=== PATIENT | female | born 1990 | race African-American/Black ===

== ENCOUNTER 2017-12-20 19:24 | Emergency (ER) | END 2017-12-20 21:39 | disposition left against medical advice (07) | LOC: ER 19:24 | DX: Z53.21 Procedure and treatment not carried out due to patient leaving prior to being seen by health care provider (principal); R11.2 Nausea with vomiting, unspecified ==

== ENCOUNTER 2018-05-13 15:10 | Outpatient (CLI) | payer MEDICAID ==
[2018-05-13 16:14] LABS: BACTERIA (WET MOUNT) 4+ BACTERIA SEEN; EPITHELIALS (WET MOUNT) 3+ EPITHELIALS SEEN; RBCS (WET MOUNT) 1+ RBCS SEEN; T.VAGINALIS (WET MOUNT) NO TRICHOMONAS SEEN; WBCS (WET MOUNT) 4+ WBCS SEEN; YEAST (WET MOUNT) NO YEAST SEEN
[2018-05-13 16:17] LABS: APPEARANCE,URINE CLEAR; BILIRUBIN,URINE NEGATIVE (NEGATIVE); COLOR,URINE YELLOW; GLUCOSE, URINE NEGATIVE (NEGATIVE); KETONES,URINE NEGATIVE (NEGATIVE); LEUKOCYTE ESTERASE,URINE MODERATE (NEGATIVE); NITRITE,URINE NEGATIVE (NEGATIVE); PROTEIN,URINE 30 mg/dL (NEGATIVE); URINE SPECIFIC GRAVITY 1.026
[2018-05-13 16:37] LABS: URINE BARBITURATES SCREEN NEGATIVE; URINE BENZODIAZEPINES SCREEN NEGATIVE; URINE COCAINE SCREEN NEGATIVE; URINE MARIJUANA (THC) SCREEN NEGATIVE; URINE METHADONE SCREEN NEGATIVE; URINE PHENCYCLIDINE SCREEN NEGATIVE
[2018-05-13 16:41] LABS: URINE AMPHETAMINES SCREEN NEGATIVE
[2018-05-13] MEDS ORDERED: ALBUTEROL SULFATE HFA (90 MCG/PUFF) 200 PUFF/8.5 GM MDI IH ONE (17:00)
[2018-05-13 17:44] LABS: CHLAM PCR NOT DETECTED (NOT DETECT); GON PCR NOT DETECTED (NOT DETECT)
--- NOTE | 2018-05-13 18:32 | RADIOLOGY REPORT (SQ) ---
EXAM DESCRIPTION: U/S OB LIMITED COMPLETED DATE/TIME: 05/13/2018 5:02 pm REASON FOR STUDY: cervical length COMPARISON: None. TECHNIQUE: Limited transvaginal and transabdominal grayscale ultrasound for evaluation of specific r equested obstetrical parameters. LIMITATIONS: None. FINDINGS: CERVICAL LENGTH: 4.3 cm Closed. LISA: 10.9 cm. FHR: 140 beats per minute. PRESENTATION: Cephalic. PLACENTA: Anterior ANATOMY: Not assessed OTHER: Composite ultrasound age 28 weeks 3 days. IMPRESSION: LIMITED OBSTETRICAL ULTRASOUND WITH MEASURED PARAMETERS DELINEATED ABOVE. Trimester of : Third trimester - 28 weeks to delivery. TECHNICAL DOCUMENTATION: JOB ID: [id number] [employer]- All Rights Reserved Reading location - IP/workstation name: [email or web address]
== END 2018-05-13 17:54 | disposition home or self-care (01) ==
LOC: LC 15:10
PROVIDERS: ATTEND Obstetrics & Gynecology
PROC: 4A1HXCZ Monitoring of Products of Conception, Cardiac Rate, External Approach (ICD-10-PCS; principal; 2018-05-13)
DX: O47.02 False labor before 37 completed weeks of gestation, second trimester (principal); Z3A.27 27 weeks gestation of pregnancy
CPT/HCPCS: 87210; 81005; 80307; 87491; 87591; 76815; 59899; J3490

== ENCOUNTER 2018-06-03 14:03 | Outpatient (CLI) | payer MEDICAID ==
[2018-06-03 15:06] LABS: APPEARANCE,URINE SLIGHTLY-CLOUDY; BILIRUBIN,URINE NEGATIVE (NEGATIVE); COLOR,URINE AMBER; GLUCOSE, URINE NEGATIVE (NEGATIVE); KETONES,URINE NEGATIVE (NEGATIVE); LEUKOCYTE ESTERASE,URINE LARGE (NEGATIVE); NITRITE,URINE NEGATIVE (NEGATIVE); PROTEIN,URINE 30 mg/dL (NEGATIVE); URINE SPECIFIC GRAVITY 1.025
[2018-06-03 15:17] LABS: URINE AMPHETAMINES SCREEN NEGATIVE; URINE BARBITURATES SCREEN NEGATIVE; URINE BENZODIAZEPINES SCREEN NEGATIVE; URINE COCAINE SCREEN NEGATIVE; URINE MARIJUANA (THC) SCREEN NEGATIVE; URINE METHADONE SCREEN NEGATIVE; URINE PHENCYCLIDINE SCREEN NEGATIVE
== END 2018-06-03 15:23 | disposition home or self-care (01) ==
LOC: LC 14:03
PROVIDERS: ATTEND Obstetrics & Gynecology
PROC: 4A1HXCZ Monitoring of Products of Conception, Cardiac Rate, External Approach (ICD-10-PCS; principal; 2018-06-03)
DX: O23.593 Infection of other part of genital tract in pregnancy, third trimester (principal); B37.49 Other urogenital candidiasis; Z3A.30 30 weeks gestation of pregnancy
CPT/HCPCS: 80307; 81001; 84112

== ENCOUNTER 2018-06-14 13:45 | Emergency (ER) | payer MEDICAID | END 2018-06-14 14:46 | disposition left against medical advice (07) | LOC: ER 13:45 | DX: Z53.21 Procedure and treatment not carried out due to patient leaving prior to being seen by health care provider (principal); R06.02 Shortness of breath ==

== ENCOUNTER 2018-06-26 12:19 | Outpatient (CLI) | payer MEDICAID ==
[2018-06-26 13:07] LABS: APPEARANCE,URINE SLIGHTLY-CLOUDY; BILIRUBIN,URINE NEGATIVE (NEGATIVE); GLUCOSE, URINE NEGATIVE (NEGATIVE); KETONES,URINE 20 mg/dL (NEGATIVE); LEUKOCYTE ESTERASE,URINE LARGE (NEGATIVE); NITRITE,URINE NEGATIVE (NEGATIVE); PROTEIN,URINE 30 mg/dL (NEGATIVE); URINE SPECIFIC GRAVITY 1.021; UROBILINOGEN,URINE NEGATIVE mg/dL (<2.0)
[2018-06-26 13:08] LABS: COLOR,URINE DARK YELLOW
[2018-06-26 13:28] LABS: URINE AMPHETAMINES SCREEN NEGATIVE; URINE BARBITURATES SCREEN NEGATIVE; URINE BENZODIAZEPINES SCREEN NEGATIVE; URINE COCAINE SCREEN NEGATIVE; URINE MARIJUANA (THC) SCREEN NEGATIVE; URINE METHADONE SCREEN NEGATIVE; URINE PHENCYCLIDINE SCREEN NEGATIVE
--- NOTE | 2018-06-26 14:39 | Non Stress Test Report ---
Non Stress Test Datetime Report Generated by CPN: 06/26/2018 14:38 DEMOGRAPHIC EGA NST: 34.0 INDICATION Indication for Study: Ordered by Provider Indication for Study (NST) Other: repeat from the office MONITORING Monitor Explained: Monitor Explained; Test Explained; Patient Verbalized Understanding Time on Monitor: 06/26/2018 12:40 Time off Monitor: 06/26/2018 13:27 NST Duration: 47 NST INTERVENTIONS NST Interventions: PO Hydration; Reposition Patient Physician Notified NST: A You CNM BABY A: [id number] BABY A Movement : Present Contraction Frequency : 0 FHR Baseline : 140 Accelerations : 15X15 Decelerations : None Variability : Moderate 6-25bpm NST Review: Meets Criteria for Reactive NST NST Review and Verified By : KRISTEN TREJO RN NSMendy Results: Reactive NST REPORT Report Trigger: Send Report
== END 2018-06-26 13:45 | disposition home or self-care (01) ==
LOC: LC 12:19
PROVIDERS: ATTEND Obstetrics & Gynecology
PROC: 4A1HXCZ Monitoring of Products of Conception, Cardiac Rate, External Approach (ICD-10-PCS; principal; 2018-06-26)
DX: Z34.93 Encounter for supervision of normal pregnancy, unspecified, third trimester (principal)
CPT/HCPCS: 59025; 80307; 81001; 84112; 87086

== ENCOUNTER 2018-07-13 14:31 | Outpatient (CLI) | payer MEDICAID | END 2018-07-13 15:39 | disposition home or self-care (01) | LOC: LC 14:31 | PROVIDERS: ATTEND Obstetrics & Gynecology | PROC: 4A1HXCZ Monitoring of Products of Conception, Cardiac Rate, External Approach (ICD-10-PCS; principal; 2018-07-13) | DX: O36.5930 Maternal care for other known or suspected poor fetal growth, third trimester, not applicable or unspecified (principal); Z3A.36 36 weeks gestation of pregnancy | CPT/HCPCS: 59025 ==

== ENCOUNTER 2018-07-31 18:04 | Inpatient (IN) | payer MEDICAID ==
--- NOTE | 2018-07-31 18:13 | Non Stress Test Report ---
Non Stress Test Datetime Report Generated by CPN: 07/31/2018 18:13 DEMOGRAPHIC EGA NST: 36.3 INDICATION Indication for Study: Other Indication for Study (NST) Other: repeat from the office growth lag MONITORING Monitor Explained: Monitor Explained; Test Explained; Patient Verbalized Understanding Time on Monitor: 07/13/2018 14:44 Time off Monitor: 07/13/2018 15:31 NST Duration: 47 NST INTERVENTIONS NST Interventions: PO Hydration; Reposition Patient Physician Notified NST: Dr Younger BABY A: [id number] BABY A Movement : Present Contraction Frequency : 0 FHR Baseline : 140 Accelerations : 15X15 Decelerations : None Variability : Moderate 6-25bpm NST Review: Meets Criteria for Reactive NST NST Review and Verified By : Bonifacio Bellavance RN NST Results: Reactive NST REPORT Report Trigger: Send Report
[2018-07-31] MEDS ORDERED: DINOPROSTONE 10 MG VAGINAL INSERT.SR PV PRN (18:20)
[2018-07-31] MEDS ORDERED: RINGERS SOLUTION,LACTATED 300 ML IV ONE (18:20)
[2018-07-31 19:08] LABS: APPEARANCE,URINE SLIGHTLY-CLOUDY; BILIRUBIN,URINE NEGATIVE (NEGATIVE); GLUCOSE, URINE NEGATIVE (NEGATIVE); KETONES,URINE NEGATIVE (NEGATIVE); LEUKOCYTE ESTERASE,URINE SMALL (NEGATIVE); NITRITE,URINE NEGATIVE (NEGATIVE); PROTEIN,URINE 30 mg/dL (NEGATIVE); URINE SPECIFIC GRAVITY 1.021
[2018-07-31 19:12] LABS: COLOR,URINE YELLOW
[2018-07-31 19:26] LABS: URINE AMPHETAMINES SCREEN NEGATIVE; URINE BARBITURATES SCREEN NEGATIVE; URINE BENZODIAZEPINES SCREEN NEGATIVE; URINE COCAINE SCREEN NEGATIVE; URINE MARIJUANA (THC) SCREEN NEGATIVE; URINE METHADONE SCREEN NEGATIVE; URINE PHENCYCLIDINE SCREEN NEGATIVE
[2018-07-31 19:51] LABS: ABSOLUTE BASOPHILS # (AUTO) 0.1 10^3/uL (0.0-0.2); ABSOLUTE LYMPHOCYTES (AUTO) 1.5 10^3/uL (0.5-4.7); BASOPHILS % (AUTO) 0.4 % (0-2); EOSINOPHILS % (AUTO) 0.3 % (0-6); HEMATOCRIT 33.3 % (36.0-47.0); LYMPHOCYTES % (AUTO) 10.1 % (13-45); MEAN CORPUSCULAR HEMOGLOBIN 29.5 pg (27.0-33.4); MEAN CORPUSCULAR VOLUME 90 fl (80-97); MONOCYTES % (AUTO) 6.7 % (3-13); PLATELET COUNT 284 10^3/uL (150-450); RED BLOOD COUNT 3.72 10^6/uL (3.72-5.28); RED CELL DISTRIBUTION WIDTH 13.5 % (11.5-14.0); SEGMENTED NEUTROPHILS % (AUTO) 82.5 % (42-78); TOTAL CELLS COUNTED % (AUTO) 100 %; WHITE BLOOD COUNT 14.5 10^3/uL (4.0-10.5)
--- NOTE | 2018-07-31 20:35 | Admission Physical ---
Datetime Report Generated by CPN: 07/31/2018 20:35 CURRENT ADMISSION Chief Complaint: Other Indication for Induction: Indicated by Testing; Other Indication for Induction- Other: small abdominal circumference Admit Impression : Term, Intrauterine ; No Active Labor Admit Plan: Admit to Unit; Initiate Labor Induction Protocol ALLERGIES Medication Allergies: Yes Medication Allergies: Penicillins (06/14/2018) Latex: No Latex Allergies Food Allergies: n/a Environmental Allergies: pollen OBSTETRICAL HISTORY EDC: 08/07/2018 00:00 : 1 Para: 0 (Annotations: Data stored by N on behalf of user) Term: 0 : 0 SAB: 0 IAB: 0 Ectopic: 0 Livin Cesareans: 0 VBACs: 0 Multiple Births: 0 Gestational Diabetes: No Rh Sensitization: No Incompetent Cervix: No PRINCE: No Infertility: No ART Treatment: No Uterine Anomaly: No IUGR: Yes Hx Previous C/S: No Macrosomia: No Hx Loss/Stillborn: No PIH: No Hx : No Placenta Previa/Abruption: No Depression/PP Depression: No PTL/PROM: No Post Hemorrhage: No Current Procedures: Ultrasound; NST Obstetrical History Comments: G1- current SEE RECORDS Alcohol: No Marijuana : No Cocaine: No Other Illicit Drugs: No Cigarettes: Never Smoker. 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 Heart Disease: No Hosp/Surgery: No Autoimmune Disorder: No Anesthetic Complications: No Kidney Disease: No Abnormal Pap Smear: No Neuro/Epilepsy: No Psychiatric Disorders: No Other Medical Diseases: No Hepatitis/Liver Disease: No Significant Family History: Yes Varicosities/Phlebitis: No Trauma/Violence : No Thyroid Dysfunction: No Medical History Comments: recurrent BV before INFECTIOUS HISTORY Gonorrhea: No Genital Herpes: No Chlamydia: No Tuberculosis: No Syphilis: No Hepatitis: No HIV/AIDS Exposure: No Rash or Viral Illness: No HPV: No PHYSICAL EXAM General: Normal HEENT: Normal Neurologic: Normal Thyroid: Normal Heart: Normal Lungs: Normal Breast: Normal Back: Normal Abdomen: Normal Genitourinary Exam: Normal Extremities: Normal DTRs: Normal Pelvic Type: Adequate Vital Signs: Reviewed; Within Normal Limits VAGINAL EXAM Dilatation: 1 Effacement: 80 Station: -1 Contraction Comments: irregular MEMBRANES Membranes: Intact FETUS A EGA: 39.0 Monitoring: External US FHR- Baseline: 150s Variability: Moderate 6-25bpm Accelerations: 10X10 Decelerations: None FHR Category: Category I Admit Comment: This will be a cervidil induction, which has not been placed yet. She GBS Positive. PLANS FOR LABOR AND DELIVERY Labor and Delivery: None Pain Management: Medications; Epidural Feeding Preference: Breast Benefit of Breast Feed Discussed: Yes Circumcision: Yes INFORMED CONSENT Signature: with User ID: [email or web address]
[2018-07-31] MEDS: RINGERS SOLUTION,LACTATED 1,000 ML IV PRN (21:30)
[2018-07-31] MEDS ORDERED: DINOPROSTONE 10 MG VAGINAL INSERT.SR ONE (22:24)
[2018-08-01] MEDS ORDERED: MISOPROSTOL 0.2 MG TABLET ONE (00:30)
[2018-08-01] MEDS ORDERED: LIDOCAINE 1% INJ-PF (10 MG/ML) 30 ML SDV ONE (00:31)
[2018-08-01] MEDS ORDERED: ZOLPIDEM TARTRATE 5 MG TABLET ONE ×2 (00:31→00:32)
[2018-08-01] MEDS ORDERED: OXYTOCIN/NORMAL SALINE 20 UNIT/1,000 ML RTUINJ ONE (00:31)
[2018-08-01] MEDS ORDERED: CLINDAMYCIN 900 MG/D5W RTU 900 MG/50 ML RTUPB IV ONE (00:54)
[2018-08-01] MEDS: CLINDAMYCIN 900 MG/D5W RTU 900 MG/50 ML RTUPB IV SCH ×2 (01:01→23:46)
[2018-08-01] MEDS ORDERED: FENTANYL/BUPIVACAINE/NS/PF 300 MCG/150 ML RTUINJ EPI ONE (01:39)
[2018-08-01] MEDS ORDERED: EPHEDRINE SULFATE INJ 50 MG/1 ML AMPULE ONE (01:39)
[2018-08-01] MEDS ORDERED: BUPIVACAINE HCL 0.25 % INJ/PF (2.5 MG/1 ML) 30 ML VIAL ONE (01:39)
[2018-08-01] MEDS ORDERED: LIDOCAINE 1.5%/EPINEPHRINE INJ 5 ML AMP ONE (01:40)
[2018-08-01] MEDS: RINGERS SOLUTION,LACTATED 1,000 ML IV PRN (02:17)
[2018-08-01] MEDS ORDERED: FENTANYL CITRATE INJ/PF 100 MCG/2 ML AMPUL ONE (02:54)
[2018-08-01] MEDS ORDERED: OXYTOCIN/NORMAL SALINE 20 UNIT/1,000 ML RTUINJ IV PRN (05:51)
[2018-08-01] MEDS ORDERED: DIBUCAINE 1% OINTMENT 56 GM TP PRN (05:51)
[2018-08-01] MEDS ORDERED: ZOLPIDEM TARTRATE 5 MG TABLET PO PRN (05:51)
[2018-08-01] MEDS ORDERED: ACETAMINOPHEN WITH CODEINE #3 TABLET PO PRN ×2 (05:51)
[2018-08-01] MEDS ORDERED: BENZOCAINE/MENTHOL AEROSOL SPRAY 56 ML TOP PRN (05:51)
[2018-08-01] MEDS ORDERED: DIPH/PERTUSS(ACELL)/TETANUS VAC/PF 0.5 ML SYR (>=10YO) IM PRN (05:51)
[2018-08-01] MEDS ORDERED: IBUPROFEN 800 MG TABLET ONE (07:33)
[2018-08-01] MEDS: IBUPROFEN 800 MG TABLET PO SCH ×3 (07:36→22:19)
[2018-08-01] MEDS ORDERED: ACETAMINOPHEN WITH CODEINE #3 TABLET ONE (08:42)
[2018-08-01] MEDS: DOCUSATE SODIUM 100 MG CAPSULE PO SCH ×2 (10:10→17:20)
[2018-08-01] MEDS: PRENATAL VITAMIN W DHA CAPSULE PO SCH (10:10)
[2018-08-01] MEDS: FERROUS SULFATE 325 MG TABLET PO SCH ×2 (10:10→17:20)
[2018-08-01] MEDS: SENNOSIDES/DOCUSATE 8.6-50 MG 1 EACH TABLET PO SCH (10:10)
[2018-08-02] MEDS: IBUPROFEN 800 MG TABLET PO SCH ×3 (05:05→22:26)
[2018-08-02 06:31] LABS: HEMATOCRIT 30.5 % (36.0-47.0); HEMOGLOBIN 10.3 g/dL (12.0-15.5); MEAN CORPUSCULAR HEMOGLOBIN 29.8 pg (27.0-33.4); MEAN CORPUSCULAR HGB CONC 33.6 g/dL (32.0-36.0); MEAN CORPUSCULAR VOLUME 89 fl (80-97); PLATELET COUNT 245 10^3/uL (150-450); RED BLOOD COUNT 3.44 10^6/uL (3.72-5.28); RED CELL DISTRIBUTION WIDTH 13.6 % (11.5-14.0); WHITE BLOOD COUNT 17.8 10^3/uL (4.0-10.5)
[2018-08-02] MEDS: PRENATAL VITAMIN W DHA CAPSULE PO SCH (09:29)
[2018-08-02] MEDS: FERROUS SULFATE 325 MG TABLET PO SCH ×2 (09:29→17:15)
[2018-08-02] MEDS: SENNOSIDES/DOCUSATE 8.6-50 MG 1 EACH TABLET PO SCH (09:31)
[2018-08-02] MEDS: DOCUSATE SODIUM 100 MG CAPSULE PO SCH ×2 (09:31→17:15)
--- NOTE | 2018-08-02 09:53 | PDOC PROGRESS REPORT ---
Subjective-OB Progress Note for:: 08/02/18 - PPD #1, doing well, , O+, Rubella + Physical Exam (OB) Vital Signs: Temp Pulse Resp BP Pulse Ox 98.0 F 97 15 118/83 97 08/02/18 08:26 08/02/18 08:26 08/02/18 08:26 08/02/18 08:26 08/02/18 08:26 Intake & Output 08/01/18 08/02/18 08/03/18 06:59 06:59 06:59 Intake Total 598 Balance 598 Weight 73.482 kg - General General Appearance: Appears well, Alert In distress: None - PIH/Pre-Eclampsia DTR's: 1 + Clonus: Negative Headache: Absent Epigastric Pain: No Visual Changes: No - Lochia Lochia Amount: Scant < 10 ml Lochia Color: Rubra/Red - Abdomen Description: Soft, Round Hernia Present: No Fundal Description: Firm, Midline Fundal Height: u/u - u/2 - Respiratory Respiratory Status: No respiratory distress - Abdominal Inspection: Normal Distension: No distension - Genitourinary Genitourinary Note: voiding - Extremities Upper extremity: Normal inspection Lower extremities: Normal inspection - Neurological Cognition: Normal Orientation: AAOx4 - Psychological Associated symptoms: Normal affect, Normal mood - Skin Skin Temperature: Warm Skin Moisture: Dry Objective-Diagnostic Laboratory: 08/02/18 06:11 08/02/18 06:11 WBC 17.8 H RBC 3.44 L Hgb 10.3 L Hct 30.5 L MCV 89 MCH 29.8 MCHC 33.6 RDW 13.6 Plt Count 245 Assessment and Plan(PN) - Assessment and Plan (1) Normal vaginal delivery Is this a current diagnosis for this admission?: Yes - Time Spent with Patient Time with patient: Less than 15 minutes Medications reviewed and adjusted accordingly: Yes - Disposition Anticipated Discharge: Home Within: within 24 hours
[2018-08-03] MEDS: IBUPROFEN 800 MG TABLET PO SCH (06:14)
[2018-08-03 08:49] VITALS: BP 117/84
--- NOTE | 2018-08-03 09:42 | PDOC PROGRESS REPORT ---
Subjective-OB Progress Note for:: 08/03/18 Subjective: Ready for discharge. Physical Exam (OB) Vital Signs: Temp Pulse Resp BP Pulse Ox 97.9 F 76 17 117/84 96 08/03/18 08:52 08/03/18 08:52 08/03/18 08:52 08/03/18 07:39 08/03/18 08:52 Intake & Output 08/02/18 08/03/18 08/04/18 06:59 06:59 06:59 Intake Total 790 Balance 790 - PIH/Pre-Eclampsia DTR's: 1 + Clonus: Negative Headache: Absent Epigastric Pain: No Visual Changes: No - Lochia Lochia Amount: Scant < 10 ml Lochia Color: Rubra/Red - Abdomen Description: Soft, Round Hernia Present: No Bowel Sounds: Normoactive Flatus Presence: Present Stool: Yes Fundal Description: Firm Fundal Height: u/u - u/2 Objective-Diagnostic Laboratory: 08/02/18 06:11 Assessment and Plan(PN) - Time Spent with Patient Medications reviewed and adjusted accordingly: Yes - Disposition Anticipated Discharge: Home
--- NOTE | 2018-08-03 09:50 | PDOC DISCHARGE SUMMARY ---
Final Diagnosis Discharge Date: 08/03/18 - Final Diagnosis (1) History of asthma Is this a current diagnosis for this admission?: Yes (2) Normal vaginal delivery Is this a current diagnosis for this admission?: Yes (3) Positive GBS test Is this a current diagnosis for this admission?: Yes (4) Is this a current diagnosis for this admission?: Yes Discharge Data - Discharge Medication Prescriptions: Ferrous Sulfate [Feosol 325 mg Tablet] 325 mg PO BID #60 tablet Home Medications: Pnv No.95/Ferrous Fum/Folic AC [ Vitamins Tablet] 1 each PO DAILY 05/13/18 Ferrous Sulfate [Feosol 325 mg Tablet] 325 mg PO BID #60 tablet 08/03/18 Gestational Age: 39.1 wks Reason(s) for Admission: Induction of Labor, Status Procedures: Ultrasound Intrapartum Procedure(s): Spontaneous Vaginal Delivery Complication(s): Laceration-Vaginal Laceration-Degree: 1st - Data Baby 1 Male at 1 minute: 8 at 5 minutes: 9 Weight: 3.402 kg Home with Mother: No Complications: Yes - Observation - Diagnosis Test Laboratory: Temp Pulse Resp BP Pulse Ox 97.9 F 76 17 117/84 96 08/03/18 08:52 08/03/18 08:52 08/03/18 08:52 08/03/18 07:39 08/03/18 08:52 07/31/18 07/31/18 08/02/18 18:33 19:15 06:11 RBC 3.72 3.44 L Hgb 11.0 L 10.3 L Hct 33.3 L 30.5 L Urine Opiates Screen NEGATIVE - Discharge information/Instructions Discharge Activity: Activity As Tolerated, Balance Activity w/Rest, Pelvic Rest, Slowly Increase Activity, No tub bath Discharge Diet: Regular Disposition: HOME, SELF-CARE Follow up with: [facility] in: 4, Weeks
[2018-08-03] MEDS: SENNOSIDES/DOCUSATE 8.6-50 MG 1 EACH TABLET PO SCH (10:29)
[2018-08-03] MEDS: PRENATAL VITAMIN W DHA CAPSULE PO SCH (10:29)
[2018-08-03] MEDS: FERROUS SULFATE 325 MG TABLET PO SCH (10:30)
[2018-08-03] MEDS: DOCUSATE SODIUM 100 MG CAPSULE PO SCH (10:30)
--- NOTE | 2018-08-17 09:53 | Delivery Summary ---
Del Sum A-C Datetime Report Generated by CPN: 08/17/2018 09:53 DELIVERY PERSONNEL DELIVERY PERSONNEL: [id number] Delivery Doctor:: Catrina Krishnamurthy MD Labor and Delivery Nurse:: Ashlee Pham RNvocational horticulture instructor Nurse:: Riddhi Neff RN Nursery Nurse:: Eva Pat RN Stone Planer/PREFORMS LAMINATOR: Cuca Frost, CASH GRAIN GROWER MATERNAL INFORMATION Delivery Anesthesia: Epidural Medications After Delivery: Pitocin Drip 20 Units/1000ml NSS Estimated Blood Loss (ml): 100 Maternal Complications: None Provider Comments: of a viable male at 0527 with an OA presentation; APGARS 8, 9; 1st degree periurthral and vaginal lacs LABOR SUMMARY EDC: 08/07/2018 00:00 No. Babies in Womb: 1 Attempted: No Labor Anesthesia: Epidural LABOR INFORMATION Reason for Induction: Intrauterine Growth Retardation; Other Reason for Induction- Other: Abdominal lag Onset of Labor: 08/01/2018 01:02 Complete Dilatation: 08/01/2018 05:01 Cervical Ripening Agents: Cervidil Oxytocin: N/A (Annotations: Data stored by N on behalf of user) Group B Beta Strep: Positive Antibiotics # of Doses: 1 Antibiotics Time of Last Dose: 100 Name of Antibiotic Given: Clindamycin Steroids Given: None Reason Steroids Not Administered: Not Applicable MEMBRANES Membranes Rupture Method: Spontaneous Rupture of Membranes: 08/01/2018 01:02 Length of Rupture (hr): 4.42 Amniotic Fluid Color: Clear Amniotic Fluid Amount: Moderate Amniotic Fluid Odor: Normal STAGES OF LABOR Stage 1 hr: 3 Stage 1 min: 59 Stage 2 hr: 0 Stage 2 min: 26 Stage 3 hr: 0 Stage 3 min: 5 Total Time in Labor hr: 4 Total Time in Labor min: 30 VAGINAL DELIVERY Episiotomy: None Laceration #1: Vaginal; Periurethral Laceration Extension #1: First Degree Laceration #2: Vaginal Laceration Extension #2: First Degree Laceration Repair: Yes Laceration Repair Note: 3-0 Chormic was used for the repair Initial Vag Sponge Count: 0 Final Vag Sponge Count: 0 Initial Vag Sharps Count: 0 Final Vag Sharps Count: 0 Sponge Count Correct: Yes Sharps Count Correct: Yes CSECTION DELIVERY Primary Indication: N/A Secondary Indication: N/A CSection Incidence: N/A Labor: N/A Elective: N/A CSection Incision: N/A Uterine Closure: Double-layer closure BABY A INFORMATION Infant Delivery Date/Time: 08/01/2018 05:27 Method of Delivery: Vaginal Method of Delivery: Vaginal Born in Route : No : N/A Forceps: N/A Vacuum Extraction: N/A Shoulder Dystocia : No PRESENTATION/POSITION BABY A Presentation: Cephalic Cephalic Presentation: Vertex Vertex Position: Left Occipital Anterior Breech Presentation: N/A PLACENTA INFORMATION BABY A Placenta Delivery Time : 08/01/2018 05:32 Placenta Method of Delivery: Spontaneous Placenta Status: Delivered SCORES BABY A Heart Rate 1 min: >100 bpm Resp Effort 1 min: Good Cry Reflex Irritability 1 min: Cough or Sneeze or Pulls Away Muscle Tone 1 min: Active Motion Color 1 min: Blue/Pale Resuscitation Effort 1 min: Tactile Stimulation SCORE 1 MIN: 8 Heart Rate 5 min: >100 bpm Resp Effort 5 min: Good Cry Reflex Irritability 5 min: Cough or Sneeze or Pulls Away Muscle Tone 5 min: Active Motion Color 5 min: Body [place], Extremities Blue Resuscitation Effort 5 min: N/A SCORE 5 MIN: 9 INFORMATION BABY A Gestational Age at Delivery: 39.1 Gestational Status: Full Term- 39- 40.6 Weeks Outcome : Liveborn Infant Condition : Stable Sex: Male Sex: Male IDENTIFICATION BABY A Verification Date/Time: 08/01/2018 05:56 ID Band Number: [id number] Mother's Name Verified: Yes RN Verifying Infant: Mayi Pat RN, A. Titayak RN WEIGHT/LENGTH BABY A Birthweight (gm): 3407 Infant Weight (lb): 7 Infant Weight (oz): 8 Infant Length (in): 20.00 Length (cm): 50.80 CORD INFORMATION BABY A No. Cord Vessels: 3 Nuchal Cord : N/A Cord Blood Taken: Yes-For Eval (Mom's Blood Type - or O+) Suction: Mouth; Nose ASSESSMENT BABY A Skin to Skin: Yes Skin to Skin Time (min): 100 BABY B INFORMATION : N/A SIGNATURES Signature: with User ID: [email or web address]
== END 2018-08-03 13:06 | disposition home or self-care (01) | DRG 807 ==
LOC: LR 18:04 → 2S 08-01 08:55
PROVIDERS: ADMIT Obstetrics & Gynecology; ATTEND Obstetrics & Gynecology
PROC: 10E0XZZ Delivery of Products of Conception, External Approach (ICD-10-PCS; principal; 2018-08-01)
PROC: 0HQ9XZZ Repair Perineum Skin, External Approach (ICD-10-PCS; 2018-08-01)
DX: O99.824 Streptococcus B carrier state complicating childbirth (principal); Z37.0 Single live birth; O36.5930 Maternal care for other known or suspected poor fetal growth, third trimester, not applicable or unspecified; O71.82 Other specified trauma to perineum and vulva; O71.4 Obstetric high vaginal laceration alone; O99.52 Diseases of the respiratory system complicating childbirth; J45.909 Unspecified asthma, uncomplicated; Z3A.39 39 weeks gestation of pregnancy
CPT/HCPCS: 36415; 80307; 81005; 85025; 85027; 86592; 86850; 86900; 86901; 90715; 94760; J2590; J3010; J3490

== ENCOUNTER 2020-01-05 16:16 | Emergency (ER) | payer MEDICAID ==
[2020-01-05] MEDS ORDERED: ONDANSETRON HCL INJ/PF 4 MG/2 ML SDV IV ONE (16:34)
[2020-01-05] MEDS ORDERED: NORMAL SALINE 1000 ML 1,000 ML IV ONE (16:35)
--- NOTE | 2020-01-05 16:54 | ER Document Report ---
ED Medical Screen (RME) - General Chief Complaint: Vomiting/Diarrhea Stated Complaint: DIARRHEA,BLOOD IN STOOL,NAUSEA Time Seen by Provider: 01/05/20 16:28 Mode of Arrival: Ambulatory Information source: Patient Notes: 29-year-old female presented to ED for complaint of nausea and vomiting x5 hours. She states she is vomited at least 3 times in the last 5 hours. She states the last time she went to the bathroom she had several large spots of bright red blood. She states she does not have any pain in the rectum she does not have any hemorrhoids that she knows of. She is alert oriented respirations regular nonlabored speaking in full sentences. Her pulse was between 118 and 132 while I was trying to do her vital signs. I have greeted and performed a rapid initial assessment of this patient. A comprehensive ED assessment and evaluation of the patient, analysis of test results and completion of medical decision making process will be conducted by an additional ED providers. TRAVEL OUTSIDE OF THE [place] IN LAST 30 DAYS: No - Related Data Allergies/Adverse Reactions: Penicillins Allergy (Verified 07/31/18 21:44) Physical Exam - Vital signs Vitals: Temp Pulse Resp BP Pulse Ox 98.8 F 120 H 18 114/86 H 100 01/05/20 16:50 01/05/20 16:50 01/05/20 16:50 01/05/20 16:50 01/05/20 16:50 Course - Vital Signs Vital signs: Temp Pulse Resp BP Pulse Ox 98.8 F 120 H 18 114/86 H 100 01/05/20 16:50 01/05/20 16:50 01/05/20 16:50 01/05/20 16:50 01/05/20 16:50
[2020-01-05 18:05] LABS: APPEARANCE,URINE SLIGHTLY-CLOUDY; BILIRUBIN,URINE NEGATIVE (NEGATIVE); COLOR,URINE AMBER; GLUCOSE, URINE NEGATIVE (NEGATIVE); KETONES,URINE 20 mg/dL (NEGATIVE); LEUKOCYTE ESTERASE,URINE NEGATIVE (NEGATIVE); NITRITE,URINE NEGATIVE (NEGATIVE); PROTEIN,URINE 100 mg/dL (NEGATIVE); UROBILINOGEN,URINE NEGATIVE mg/dL (<2.0)
[2020-01-05 18:15] LABS: ABSOLUTE BASOPHILS # (AUTO) 0.1 10^3/uL (0.0-0.2); ABSOLUTE LYMPHOCYTES (AUTO) 1.4 10^3/uL (0.5-4.7); ABSOLUTE MONOCYTES (AUTO) 0.7 10^3/uL (0.1-1.4); ABSOLUTE NEUT (AUTO) 9.2 10^3/uL (1.7-8.2); BASOPHILS % (AUTO) 0.8 % (0-2); EOSINOPHILS % (AUTO) 0.2 % (0-6); HEMATOCRIT 40.1 % (36.0-47.0); HEMOGLOBIN 13.8 g/dL (12.0-15.5); LYMPHOCYTES % (AUTO) 12.1 % (13-45); MEAN CORPUSCULAR HEMOGLOBIN 31.1 pg (27.0-33.4); MEAN CORPUSCULAR HGB CONC 34.5 g/dL (32.0-36.0); MEAN CORPUSCULAR VOLUME 90 fl (80-97); MONOCYTES % (AUTO) 6.4 % (3-13); PLATELET COUNT 323 10^3/uL (150-450); RED BLOOD COUNT 4.45 10^6/uL (3.72-5.28); RED CELL DISTRIBUTION WIDTH 12.8 % (11.5-14.0); SEGMENTED NEUTROPHILS % (AUTO) 80.5 % (42-78); TOTAL CELLS COUNTED % (AUTO) 100 %; WHITE BLOOD COUNT 11.4 10^3/uL (4.0-10.5)
[2020-01-05 18:38] LABS: ALBUMIN 4.9 g/dL (3.5-5.0); ALKALINE PHOSPHATASE 85 U/L (38-126); ANION GAP 10 (5-19); ASPARTATE AMINO TRANSFERASE 27 U/L (14-36); BILIRUBIN,DIRECT 0.3 mg/dL (0.0-0.4); BILIRUBIN,TOTAL 0.8 mg/dL (0.2-1.3); BLOOD UREA NITROGEN 9 mg/dL (7-20); CALCIUM 9.7 mg/dL (8.4-10.2); CARBON DIOXIDE 28 mmol/L (22-30); CHLORIDE 106 mmol/L (98-107); GLUCOSE 93 mg/dL (75-110); POTASSIUM 3.6 mmol/L (3.6-5.0); TOTAL PROTEIN 8.7 g/dL (6.3-8.2)
--- NOTE | 2020-01-05 18:57 | ER Document Report ---
ED GI/ - General Chief Complaint: Vomiting/Diarrhea Stated Complaint: DIARRHEA,BLOOD IN STOOL,NAUSEA Time Seen by Provider: 01/05/20 16:28 Mode of Arrival: Ambulatory Notes: This 29-year-old female presents to the emergency department with a complaint of nausea and vomiting with diarrhea began on Tuesday. Today she went to the bathroom and had episodic diarrhea and then noted some blood in the stool. She complains of mild lower abdominal pain and continued nausea. She denies fever, hematemesis or dizziness/syncope. TRAVEL OUTSIDE OF THE [place] IN LAST 30 DAYS: No - Related Data Allergies/Adverse Reactions: Penicillins Allergy (Verified 07/31/18 21:44) Past Medical History - General Information source: Patient - Social History Smoking Status: Unknown if Ever Smoked Family History: Reviewed & Not Pertinent Review of Systems - Review of Systems Notes: Constitutional: Negative for fever. HENT: Negative for sore throat. Eyes: Negative for visual changes. Cardiovascular: Negative for chest pain. Respiratory: Negative for shortness of breath. Gastrointestinal: See HPI Genitourinary: Negative for dysuria. Musculoskeletal: Negative for back pain. Skin: Negative for rash. Neurological: Negative for headaches, weakness or numbness. 10 point ROS negative except as marked above and in HPI. Physical Exam - Vital signs Vitals: Temp Pulse Resp BP Pulse Ox 98.8 F 120 H 18 114/86 H 100 01/05/20 16:50 01/05/20 16:50 01/05/20 16:50 01/05/20 16:50 01/05/20 16:50 - Notes Notes: PHYSICAL EXAMINATION: Physical Exam: General: Well-nourished well-developed 9-year-old female in no acute distress HEENT: NC/AT, pupils equal round and reactive to light, MM moist,nares clear, oropharynx clear, airway patent Neck: supple, no adenopathy, no masses. Good range of motion Lungs: clear, no wheezing, no rales no rhonchi CVS: Regular rate and rhythm no murmur gallop or rub Abdomen: Soft, hyperactive bowel sounds, soft, no masses or tenderness no guarding or rebound Ext: No edema, clubbing or cyanosis. Neuro: Alert and responsive, moving all 4 extremities on command, cranial nerves intact, no focal findings Skin: Intact no open lesions, no rash PSYCH: Normal mood, normal affect. Course - Re-evaluation Re-evalutation: 01/05/20 21:16 I reviewed the patient's CT scan and laboratory data, negative for acute intra- abdominal process. Likely a enteritis-like picture. I encouraged the patient to begin with clear fluids and use of Zofran for nausea. She is also given Bentyl for possible intestinal spasms. She is to follow-up with her primary care doctor as needed, she may return to the emergency department if her symptoms are worsening or if she has other concerns. Patient acknowledges understanding of this plan and is now ready for discharge. - Vital Signs Vital signs: Temp Pulse Resp BP Pulse Ox 98.8 F 72 14 122/88 H 100 01/05/20 21:59 01/05/20 21:59 01/05/20 21:59 01/05/20 21:59 01/05/20 21:59 - Laboratory Result Diagrams: 01/05/20 18:00 01/05/20 18:00 Laboratory results interpreted by me: 01/05/20 01/05/20 01/05/20 17:37 18:00 18:00 WBC 11.4 H Lymph % (Auto) 12.1 L Absolute Neuts (auto) 9.2 H Seg Neutrophils % 80.5 H Total Protein 8.7 H Urine Protein 100 H Urine Ketones 20 H Urine Ascorbic Acid 40 H Discharge - Discharge Clinical Impression: Enteritis Nausea and vomiting Qualifiers: Vomiting type: unspecified Vomiting Intractability: unspecified Qualified Code(s): R11.2 - Nausea with vomiting, unspecified Diarrhea Qualifiers: Diarrhea type: unspecified type Qualified Code(s): R19.7 - Diarrhea, unspecified Condition: Good Disposition: HOME, SELF-CARE Instructions: Antinausea Medication ([facility]), Antispasmodics ([facility]), Vomiting ([facility]) Additional Instructions: You were seen in the emergency department tonight with nausea vomiting and diarrhea. He also noted that there was some small areas of bleeding and noted on your bowel movements. CT scan of your abdomen and pelvis along with the lab work are normal. You were diagnosed with enteritis, a prescription is given for Zofran for nausea and dicyclomine for intestinal spasms. We will have to limit your diet to clear liquids and light foods over the next 24 to 48 hours. Avoid fried foods greasy foods and meats as they are hard to digest and may make your symptoms worse. Please follow-up with your primary care doctor as needed Return to the emergency department if your symptoms are worsening or if you have other concerns. HOME CARE INSTRUCTIONS & INFORMATION: Thank you for choosing us for your medical needs. We hope you're satisfied with the care you received. After you leave, you must properly care for your problem and, at the same time, observe its progress. Any condition can change. Some illnesses can change rapidly over hours or days. If your condition worsens, return to the Emergency Department or see your physician promptly. ABOUT YOUR X-RAYS AND EKG'S: If you had an EKG or X-rays taken, they have been read by the Emergency Physician. The X-rays and EKG's will also be read by a Radiologist or Operator Weapon Locating Radar within 24 hours. If discrepancies are noted, you will be notified by telephone. Please be certain the ED has a correct telephone number & address where you can be reached. Also, realize that some fractures or abnormalities do not show up on initial X-rays. If your symptoms continue, see your physician. ABOUT YOUR LABORATORY TEST: If you had laboratory tests, the results have been reviewed by the Emergency Physician. Some test results (for example cultures) may not be available for several days. You will be contacted if any test result shows you need additional treatment. Please be certain the ED has a correct telephone number and address where you can be reached. ABOUT YOUR MEDICATIONS: You will receive instructions on how to take your medicine on the prescription label you receive. Additional information may be provided by the Pharmacy. If you have questions afterwards, call the ED for clarification or further instructions. Some prescribed medications may cause drowsiness. Do not perform tasks such as driving a car or operating machinery without consulting your Pharmacist. If you feel you need a refill of pain medication, your condition will need re-evaluation. Please do not call for a refill of any medication. ABOUT YOUR SIGNATURE: Signature of this document acknowledges to followin. Understanding that you received emergency treatment and that you may be released before al medical problems are known or treated. Please be certain the ED has a correct phone number & address where you can be reached. 2. Acknowledgement that you will arrange for follow-up care as recommended. 3. Authorization for the Emergency Physician to provide information to your follow-up Physician in order to maximize your care. AT ANY TIME, IF YOUR SYMPTOMS CHANGE SIGNIFICANTLY OR WORSEN OR YOU DEVELOP NEW SYMPTOMS, RETURN TO THE EMERGENCY DEPARTMENT IMMEDIATELY FOR RE-EVALUATION. OUR GOAL IS TO PROVIDE EXCELLENT MEDICAL CARE! WE HOPE THAT WE HAVE MET YOUR EXPECTATIONS DURING YOUR EMERGENCY DEPARTMENT VISIT AND THAT YOU FEEL YOU HAVE RECEIVED EXCELLENT CARE! Prescriptions: Dicyclomine HCl [Bentyl 10 mg Capsule] 1 cap PO TID #30 cap Ondansetron [Zofran Odt 4 mg Tablet] 1 - 2 tab PO Q4H PRN #10 tab.rapdis PRN Reason: For Nausea/Vomiting
--- NOTE | 2020-01-05 20:16 | RADIOLOGY REPORT (SQ) ---
EXAM DESCRIPTION: CT ABDOMEN PELVIS WITHOUT IV CONTRAST COMPLETED DATE/TME: 01/05/2020 18:54 CLINICAL HISTORY: 29 years Female abdominal pain, lower COMPARISON: None. TECHNIQUE: Contiguous axial images obtained through the abdomen and pelvis without IV contrast. Reformatted images obtained. This exam was performed according to our department optimization program which includes automated exposure control, adjustment of the mA and/or kv according to patient size and/or use of iterative reconstruction technique. FINDINGS: The lung bases are clear. The liver appears unremarkable. The spleen and pancreas appear unremarkable. No adrenal masses. The kidneys appear unremarkable. No hydronephrosis or definite ureteral calculi. The gallbladder is present with one gallstone noted. No obvious wall thickening or inflammation.. No aneurysmal dilatation of the aorta. No bowel obstruction. Unremarkable appendix. No free pelvic fluid. Hemorrhagic appearing left ovarian cyst measuring 2.2 cm for which no follow-up is warranted. IMPRESSION: No acute intra-abdominal abnormality is identified. Cholelithiasis 2.2 cm probably benign ovarian cyst. No follow-up imaging is recommended. Reference: J Am Jessica Radiol 2013;10:675-681
--- NOTE | 2020-01-05 20:44 | EKG REPORT ---
SEVERITY:- NORMAL ECG - SINUS RHYTHM : Confirmed by: Abdiel Marrero MD 05-Jan-2020 20:42:29
[2020-01-05 22:00] VITALS: BP 122/88
== END 2020-01-05 22:00 | disposition home or self-care (01) ==
LOC: ER 16:16
DX: K52.9 Noninfective gastroenteritis and colitis, unspecified (principal); R11.2 Nausea with vomiting, unspecified; R19.5 Other fecal abnormalities; R10.30 Lower abdominal pain, unspecified; Z88.0 Allergy status to penicillin
CPT/HCPCS: 93005; 99285; 96361; 96374; 36415; 87086; 83690; 84703; 85025; 80053; 81001; 84484; 74176; 93010; J2405; J7030